=== PATIENT | female | born 1985 | race African-American/Black ===

== ENCOUNTER 2017-07-17 21:21 | Emergency (ER) | payer MEDICAID ==
[~2017-07-17] VITALS: Ht 177.8 cm; Wt 93.0 kg
[2017-07-17 21:28] VITALS: BP 139/68
== END 2017-07-17 22:00 | disposition left against medical advice (07) ==
LOC: ER 21:56
DX: S61.216A Laceration without foreign body of right little finger without damage to nail, initial encounter (principal); Y04.0XXA Assault by unarmed brawl or fight, initial encounter; Y93.89 Activity, other specified; Y99.8 Other external cause status; Y92.89 Other specified places as the place of occurrence of the external cause; Z53.21 Procedure and treatment not carried out due to patient leaving prior to being seen by health care provider

== ENCOUNTER 2017-07-17 22:54 | Emergency (ER) | payer MEDICAID ==
[~2017-07-17] VITALS: Ht 167.6 cm; Wt 72.5 kg
[2017-07-18] MEDS ORDERED: HYDROCODONE/ACETAMINOPHEN 5/325MG TABLET PO ONE (05:15)
[2017-07-18] MEDS ORDERED: BACITRACIN ZINC OINT UDPKT TOP ONE (05:45)
[2017-07-18] MEDS ORDERED: LIDOCAINE HCL 1% 20ML VIAL (Pyxis) INJ INFIL ONE (05:45)
[2017-07-18] MEDS ORDERED: LIDOCAINE HCL/PF 1% 10 MG/ML 5ML VIAL IJ SCH (05:48)
[2017-07-18 08:18] VITALS: BP 110/54
== END 2017-07-18 08:34 | disposition home or self-care (01) ==
LOC: ER 22:58
DX: S61.216A Laceration without foreign body of right little finger without damage to nail, initial encounter (principal); M54.9 Dorsalgia, unspecified; W26.0XXA Contact with knife, initial encounter; Y93.89 Activity, other specified; Y99.8 Other external cause status; Y92.89 Other specified places as the place of occurrence of the external cause; Z98.890 Other specified postprocedural states
CPT/HCPCS: 12001; 72070; 72100; 73130; 81025; 99284; J3490; Z7610